=== PATIENT | female | born 1945 | race Caucasian/White ===

== ENCOUNTER 2020-01-24 08:23 | Outpatient (CLI) | payer MEDICARE, BC, SELFPAY ==
--- NOTE | 2020-01-24 08:28 | MM_ITS ---
WS: [id number] Bilateral screening digital mammogram, 01/24/2020 Clinical Data: SCREENING Comparison: 12/26/2018, 12/19/2017, 12/08/2016, 12/08/2015, 12/02/2014, 11/29/2013, 11/03/2012, 10/05/2011, 1 11/23/2009, 09/11/2009, 09/10/2008, 08/31/2007. Findings: The breast parenchymal pattern shows fat replacement. No spiculated masses or clustered calcification s are seen. There are no secondary signs of carcinoma. MM/[place] [id number] Impression: 1. Negative bilateral mammogram unchanged. 2. Recommend annual screening mammograms. BIRADS: 1-Negative FOLLOW UP: 1 Year Follow-up The CAD fish checker was used.
== END 2020-01-24 08:24 | disposition home or self-care (01) ==
LOC: RADSHAW 08:23
PROVIDERS: Family Provider Internal Medicine; PCP Internal Medicine; Visit Provider Internal Medicine
DX: Z12.31 Encounter for screening mammogram for malignant neoplasm of breast (principal)
CPT/HCPCS: 77067

== ENCOUNTER → 2020-05-07 08:38 | Outpatient (BNVA) | payer MEDICARE, BC, SELFPAY | PROVIDERS: Family Provider Internal Medicine; PCP Internal Medicine; Visit Provider Specialist | DX: M25.561 Pain in right knee (principal); M25.562 Pain in left knee | CPT/HCPCS: 73560; 73565 ==

== ENCOUNTER 2020-05-07 12:05 | Outpatient (CLI) | payer MEDICARE, BC, SELFPAY | END 2020-05-07 12:06 | disposition home or self-care (01) | LOC: SPT 12:05 | PROVIDERS: Family Provider Internal Medicine; PCP Internal Medicine; Visit Provider Specialist | DX: Z46.89 Encounter for fitting and adjustment of other specified devices (principal); M17.0 Bilateral primary osteoarthritis of knee; M25.561 Pain in right knee; M25.562 Pain in left knee | CPT/HCPCS: 73560; 73565; 97760; L1812 ==

== ENCOUNTER 2020-10-09 06:00 | Outpatient (RCR) | payer MEDICARE, BC, SELFPAY | END 2020-11-06 23:59 | disposition home or self-care (01) | LOC: MPT 06:00 | PROVIDERS: PCP Internal Medicine; Referring Provider Internal Medicine; Visit Provider Internal Medicine | DX: M25.512 Pain in left shoulder (principal) | CPT/HCPCS: 97110; 97140; 97161 ==

== ENCOUNTER 2021-04-10 10:28 | Outpatient (CLI) | payer MEDICARE, BC, SELFPAY ==
--- NOTE | 2021-04-10 10:33 | MM_ITS ---
WS: [id number] BILATERAL DIGITAL SCREENING MAMMOGRAPHY WITH CAD CLINICAL INFORMATION: SCREENING HISTORY: Screening mammogram. No current complaints. COMPARISON: January 24, 2020 TECHNIQUE: Bilateral CC and MLO views. FINDINGS: Scattered fibroglandular densities bilaterally. Punctate and lucent centered calcifications. Vascular calcifications. No suspicious focal mass, asymmetry, calcifications, or architectural distortion. No evidence of malignancy. MM/[place] [id number] IMPRESSION: BI-RADS: 2-Benign FOLLOW UP: 1 Year Follow-up Recommend return to annual screening mammography.
== END 2021-04-10 10:29 | disposition home or self-care (01) ==
LOC: RADSHAW 10:33
PROVIDERS: PCP Internal Medicine; Visit Provider Internal Medicine
DX: Z12.31 Encounter for screening mammogram for malignant neoplasm of breast (principal)
CPT/HCPCS: 77067

== ENCOUNTER 2021-05-18 15:56 | Outpatient (CLI) | payer MEDICARE, BC, SELFPAY | END 2021-05-18 15:57 | disposition home or self-care (01) | LOC: SPT 15:57 | PROVIDERS: PCP Internal Medicine; Visit Provider Specialist | DX: Z46.89 Encounter for fitting and adjustment of other specified devices (principal); M25.512 Pain in left shoulder | CPT/HCPCS: 73560; 73565; 97760; L1812 ==

== ENCOUNTER 2022-05-18 10:28 | Outpatient (CLI) | payer MEDICARE, BC, SELFPAY ==
--- NOTE | 2022-05-18 10:40 | MM_ITS ---
WS: [id number] BILATERAL SCREENING DIGITAL BREAST TOMOSYNTHESIS MAMMOGRAM WITH CAD HISTORY: SCREENING COMPARISON: 04/10/2021 and 01/24/2020 Bilateral CC and MLO views with tomosynthesis and synthetic mammography submitted. Computer aided det ection analyzed. Breast composition: There are scattered areas of fibroglandular density. No suspicious masses, microc alcifications or architectural distortion. Benign calcifications in each breast. MM/[place] [id number] IMPRESSION: BI-RADS: 2-Benign FOLLOW UP: 1 Year Follow-up
== END 2022-05-18 10:29 | disposition home or self-care (01) ==
LOC: RAD 10:30
PROVIDERS: PCP Internal Medicine; Visit Provider Internal Medicine
DX: Z12.31 Encounter for screening mammogram for malignant neoplasm of breast (principal)
CPT/HCPCS: 77063; 77067

== ENCOUNTER → 2022-05-27 10:38 | Outpatient (BNVA) | payer MEDICARE, BC, SELFPAY | PROVIDERS: PCP Internal Medicine; Visit Provider Specialist | DX: M17.0 Bilateral primary osteoarthritis of knee (principal) | CPT/HCPCS: 20610 ==

== ENCOUNTER 2022-05-27 14:26 | Outpatient (CLI) | payer MEDICARE, BC, SELFPAY | END 2022-05-27 14:27 | disposition home or self-care (01) | LOC: SPT 14:26 | PROVIDERS: PCP Internal Medicine; Visit Provider Specialist | DX: Z46.89 Encounter for fitting and adjustment of other specified devices (principal); M17.0 Bilateral primary osteoarthritis of knee | CPT/HCPCS: 97760; L1812 ==

== ENCOUNTER → 2022-12-02 09:50 | Outpatient (BNVA) | payer MEDICARE, BC, SELFPAY | PROVIDERS: PCP Internal Medicine; Visit Provider Specialist | DX: M17.0 Bilateral primary osteoarthritis of knee (principal); Z71.89 Other specified counseling | CPT/HCPCS: 20610; J7326 ==

== ENCOUNTER 2023-05-24 09:50 | Outpatient (CLI) | payer MEDICARE, BC, SELFPAY ==
--- NOTE | 2023-05-24 09:57 | MM_ITS ---
WS: [id number] VIEWS: MLO and CC views both breasts. 3D digital tomosynthesis is also included in this exam. Comparison made with prior exam of 12/08/2016, 12/19/2017, 12/26/2018, 01/24/2020, 04/10/2021, 05/18/2022.. FINDINGS: There is a new small ill-defined parenchymal density in the central posterior aspect of the right jodi ast almost directly behind the nipple. No architectural distortion or suspicious calcification noted. No new finding in the left breast. Regional ultrasound as well as compression spot images of the rig ht breast would be indicated for further workup. The breasts are almost entirely fatty. MM/[place] [id number] Impression: BI-RADS: 0-Incomplete: Need additional imaging evaluation FOLLOW-UP: See Report This mammogram was also analyzed by the Computer Aided Detection System R2 Imag e Lighting Fixtures Decorator.
== END 2023-05-24 09:51 | disposition home or self-care (01) ==
PROVIDERS: PCP Internal Medicine; Visit Provider Internal Medicine
DX: Z12.31 Encounter for screening mammogram for malignant neoplasm of breast (principal)
CPT/HCPCS: 77063; 77067

== ENCOUNTER 2023-06-02 15:08 | Outpatient (CLI) | payer MEDICARE, BC, SELFPAY | END 2023-06-02 15:09 | disposition home or self-care (01) | LOC: SPT 15:09 | PROVIDERS: PCP Internal Medicine; Visit Provider Specialist | DX: M17.0 Bilateral primary osteoarthritis of knee (principal); Z71.89 Other specified counseling | CPT/HCPCS: 20610; J7326; L1812 ==

== ENCOUNTER 2023-06-21 12:29 | Outpatient (CLI) | payer MEDICARE, BC, SELFPAY ==
--- NOTE | 2023-06-21 13:05 | MM_ITS ---
WS: [id number] ADDITIONAL VIEWS RIGHT MAMMOGRAM WITH DIGITAL BREAST TOMOSYNTHESIS. RIGHT BREAST ULTRASOUND HISTORY: ABNORMAL MAMMO COMPARISON: 05/24/2023, 05/18/2022 and 04/10/2021 RIGHT MAMMOGRAM: Spot compression views and true ML with digital breast tomosynthesis and SM. Asymmetry persists in the posterior right breast central to the nipple line and probably just inferio r to the nipple line. This is a vague asymmetry measuring approximately 13 x 8 mm. RIGHT BREAST ULTRASOUND 2-D and color Doppler imaging submitted. Asymmetry in the posterior right breast is identified by ultrasound at the 6:00 axis. There is a hypo echoic area with a few calcifications present measuring 8 x 10 x 6 mm. As this asymmetry has not been present on prior mammograms attempted biopsy should be performed. IMPRESSION: MM/[place] [id number] BI-RADS: 4-Suspicious Finding-Biopsy Should Be Considered FOLLOW UP: Biopsy Recommended Notified Sixto Jerome DO at 06/21/2023 1:54 PM.
== END 2023-06-21 12:30 | disposition home or self-care (01) ==
PROVIDERS: PCP Internal Medicine; Visit Provider Internal Medicine
DX: R92.8 Other abnormal and inconclusive findings on diagnostic imaging of breast (principal); N64.89 Other specified disorders of breast
CPT/HCPCS: 76642; 77061; G0279

== ENCOUNTER 2023-07-13 11:34 | Outpatient (CLI) | payer MEDICARE, BC, SELFPAY ==
--- NOTE | 2023-07-13 11:40 | US_ITS ---
WS: [id number] ULTRASOUND-GUIDED RIGHT BREAST BIOPSY HISTORY: ABNORMAL MAMMO COMPARISON: 06/21/2023 Procedure, risks and complications are explained to the patient. Medications are reviewed. Consent is obtained. The mass in the RIGHT breast is localized with ultrasound. Mass localizes to 6:00. Skin is cleansed w ith ChloraPrep and anesthetized with 1% buffered lidocaine. Small dermatome is made. Under sterile co nditions mass is biopsied with a 14-gauge Achieve needle. Multiple core biopsies are performed. Mater ial placed in formalin and sent to pathology for review. No complications encountered. Breast tissue marker ([email or web address] ultrasound enhanced ribbon): Single. Patient left the radiology suite with no complications. Patient is instructed to return to [facility] [place] [facility] or [facility] with any concerns. IMPRESSION: 1. Uncomplicated core needle biopsy RIGHT breast mass at 6:00. 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 Focal mucinous features. Greatest diameter of the tumor is 4 mm. Breast cancer prognostic profile is pending. RECOMMENDATION: Follow-up with oncology and breast surgeon.
[2023-08-09 08:09] LABS: Breast Profile ER,PR,HER2,Ki-6 See Report
== END 2023-07-13 11:35 | disposition home or self-care (01) ==
PROVIDERS: PCP Internal Medicine; Visit Provider Internal Medicine
DX: C50.111 Malignant neoplasm of central portion of right female breast (principal); R92.8 Other abnormal and inconclusive findings on diagnostic imaging of breast
CPT/HCPCS: 19083; 88305; 88361; 88374

== ENCOUNTER → 2023-08-02 11:31 | Outpatient (BNVA) | payer MEDICARE, BC, SELFPAY | PROVIDERS: PCP Internal Medicine; Referring Provider Internal Medicine; Visit Provider Surgery | DX: C50.919 Malignant neoplasm of unspecified site of unspecified female breast (principal) | CPT/HCPCS: 99203 ==

== ENCOUNTER → 2023-08-29 11:04 | Outpatient (BNVA) | payer MEDICARE, BC, SELFPAY | PROVIDERS: PCP Internal Medicine; Visit Provider Podiatrist Foot & Ankle Surgery | DX: B35.1 Tinea unguium (principal); G62.9 Polyneuropathy, unspecified; E11.42 Type 2 diabetes mellitus with diabetic polyneuropathy | CPT/HCPCS: 11721; 99203 ==

== ENCOUNTER 2023-09-01 10:36 | Day surgery (SDC) | payer MEDICARE, BC, SELFPAY ==
[2023-09-01] VITALS (12 sets, daily range): BP systolic 101–218; BP diastolic 62–99; PULSE 58–76; RESP 13–20; TEMP 36.1–36.6; O2SAT 91–98; BMI 40.3
--- NOTE | 2023-09-01 | US_ITS ---
WS: [id number] ULTRASOUND-GUIDED RIGHT BREAST NEEDLE LOCALIZATION CLINICAL INFORMATION: R Breast needle localization COMPARISON: 07/13/2023 FINDINGS: The procedure including risks, benefits, and complications were discussed with the patient who agreed to proceed. Using sterile technique patient was prepped and draped in the usual sterile fashion. Aft er 1% lidocaine utilizing real-time ultrasound guidance a 5 cm Kopan's needle was advanced into the R IGHT breast lesion at the 6 o'clock position at the areola. Wire was deployed in good position. No im mediate complications. Surgical specimen demonstrates gross total resection with intact localization wire. Pathology demonstrates: Invasive ductal carcinoma moderately differentiated. See pathology report for additional detail. IMPRESSION: 1. Uncomplicated ultrasound-guided wire localization. 2. Gross total resection with intact localization wire. 3. Pathology demonstrates invasive ductal carcinoma moderately differentiated. 4. Breast cancer prognostic profile is pending. See pathology report for additional detail. 5. Recommend follow-up with breast surgery and oncology as indicated US/US surgical specimen BI-RADS: 6-Known Biopsy-Proven Malignancy FOLLOW UP: See Report
--- NOTE | 2023-09-01 10:43 | US_ITS ---
WS: [email or web address] ULTRASOUND-GUIDED RIGHT BREAST NEEDLE LOCALIZATION CLINICAL INFORMATION: R Breast needle localization COMPARISON: 07/13/2023 FINDINGS: The procedure including risks, benefits, and complications were discussed with the patient who agreed to proceed. Using sterile technique patient was prepped and draped in the usual sterile fashion. Aft er 1% lidocaine utilizing real-time ultrasound guidance a 5 cm Kopan's needle was advanced into the R IGHT breast lesion at the 6 o'clock position at the areola. Wire was deployed in good position. No im mediate complications. Surgical specimen demonstrates gross total resection with intact localization wire. Pathology demonstrates: Invasive ductal carcinoma moderately differentiated. See pathology report for additional detail. IMPRESSION: 1. Uncomplicated ultrasound-guided wire localization. 2. Gross total resection with intact localization wire. 3. Pathology demonstrates invasive ductal carcinoma moderately differentiated. 4. Breast cancer prognostic profile is pending. See pathology report for additional detail. 5. Recommend follow-up with breast surgery and oncology as indicated US/[place] [id number] BI-RADS: 6-Known Biopsy-Proven Malignancy FOLLOW UP: See Report
--- NOTE | 2023-09-01 11:26 | SUR.PREOP ---
1124 PT TO RADIOLOGY VIA STRETCHER FOR SENTINEL NODE AND NEEDLE LOCALIZATION, AND BROTHER INFORMED OF THIS AND VERBALIZED UNDERSTANDING
--- NOTE | 2023-09-01 12:01 | ANES.PREANE2 ---
Pre-Anesthetic Assessment Height/Weight: Height 1.63 m Weight 106.594 kg Temp Pulse Resp BP Pulse Ox O2 Del Method 97.0 F L 76 17 196/91 95 Room Air 09/01/23 10:57 09/01/23 10:57 09/01/23 10:57 09/01/23 11:10 09/01/23 10:57 09/01/23 10:57 Operation Date: 09/01/23 13:45 [place] [id number] right breast lumpectomy and needle insertion of radiologic correlation C50.919(Right) - DO kandy Arnold Sentinal Lymph Node Biopsy(Right) - Rey Cuadra DO Familial anesthetic complications: none Was Beta Placido taken within 24 hours: Yes Was Clonidine taken within 24 hours: N/A Last intake: Intake Last Liquid Date 09/01/23 Last Liquid Time 08:30 Last Solid Date 08/31/23 Last Solid Time 16:00 Social No alcohol and No tobacco (h/o smoking) Exam alert, oriented x 3 and regular rate & rhythm Airway Submandibular: within normal limits Cervical ROM: within normal limits Mallampati: Class II Dentition: false Pulmonary Chronic Obstructive Pulmonary Disease CV/HEM Hypertension Metabolic Diabetes Mellitus and Morbid Obesity [facility] [place] Osteoarthritis/DJD Anesthetic Plan ASA status: 3 Anesthesia: General Medications/Allergies Home Medications Medication Instructions Recorded Confirmed Last Taken Type acetaminophen 325 mg capsule 650 mg PO BID 05/07/20 09/01/23 09/01/23 08:30 History (Tylenol) albuterol sulfate 90 mcg/actuation 1 inh inhalation Q4H PRN Shortness 05/07/20 08/31/23 Unknown History breath activated powder Of Breath inhaler,sensor allopurinol 100 mg tablet 100 mg PO DAILY 05/07/20 08/31/23 08/31/23 History amlodipine 10 mg tablet 10 mg PO DAILY 05/07/20 08/31/23 08/31/23 History losartan 100 mg tablet 100 mg PO DAILY 05/07/20 08/31/23 08/31/23 History magnesium oxide 400 mg PO EVERY OTHER DAY 05/07/20 08/31/23 08/29/23 History multivitamin (Daily Multi-Vitamin 1 tab PO DAILY 05/07/20 08/31/23 08/31/23 History tablet) omeprazole 20 mg tablet,delayed 20 mg PO DAILY 05/07/20 08/31/23 08/31/23 History release Hinged knee brace #2 ea 05/18/21 08/31/23 Unknown Rx HINGED KNEE BRACE #2 ea 05/27/22 08/31/23 Unknown Rx MALDIVIAN CRUTCHES #1 ea 06/02/23 08/31/23 Unknown Rx Hinged knee brace-bilateral #1 ea 06/02/23 08/31/23 Unknown Rx fluticasone 250 mcg-salmeterol 50 1 inh inhalation BID 08/02/23 09/01/23 09/01/23 08:30 History mcg/dose blistr powdr for inhalation hydrocodone 5 mg-acetaminophen 325 1 tab PO BID PRN Pain 08/02/23 08/31/23 08/26/23 History mg tablet metoprolol tartrate 100 mg tablet 100 mg PO BID 08/02/23 09/01/23 09/01/23 08:30 History methyl salicylate-menthol topical 1 applic topical DAILY 08/31/23 08/31/23 08/31/23 History cream tolnaftate 1 % topical cream 1 applic topical DIRECTED 08/31/23 08/31/23 08/27/23 History Allergies Allergy/AdvReac Type Severity Reaction Status Date / Time Penicillins Allergy rash Verified 09/01/23 10:54 Zmcgxpk-[id number]-WyJ Reductase Allergy musckle Verified 09/01/23 10:54 Inhibitor breakdown [Sdcmcef-Xtq-Imb Reductase Inhibitor] PFS Anesthesia Medical History Bronchitis, chronic Diabetes Dysplasia of bone Gout Hypertension Microscopic polyangiitis Osteoarthritis of knees, bilateral Rhabdomyolysis Schamberg's capillaritis Surgical History H/O: hysterectomy History of appendectomy Family History Mother Cancer breast cancer Father Lymphoma Social History Smoking and tobacco/nicotine status: former use of tobacco/nicotine Alcohol intake: former Substance/Drug Use: never Data Anesthesia 09/01/23 11:15 BMP 09/01/23 11:15 Sodium Cancelled Potassium Cancelled Chloride Cancelled Carbon Dioxide Cancelled BUN Cancelled Creatinine Cancelled Glucose Cancelled Calcium Cancelled Cardiac Studies: No Data to Display
--- NOTE | 2023-09-01 12:08 | PC.NURSE ---
Patient was injected with 1.06 mCi Tc99m Tilmanocept Lymphoseek in the 11:00 position of the RIGHT breast at 12:01pm by HARIKA Grande. No Complications. Please wait 15 minutes post injection for surgery.
--- NOTE | 2023-09-01 12:15 | W.PM.OPSUD ---
Surgery/Procedure H&P Update DATE OF PROCEDURE: September 01, 2023 DATE H&P PERFORMED: 08/02/23 H&P UPDATE INFORMATION: I have reviewed H&P completed within last 30 days, I have examined patient prior to procedure and No changes to prior documentation PLANNED PROCEDURE: Operation Date: 09/01/23 13:45 Pro[place] Procedures [place] [id number] right breast lumpectomy and needle insertion of radiologic correlation C50.919(Right) - DO kandy Arnold Sentinal Lymph Node Biopsy(Right) - Rey Cuadra DO
--- NOTE | 2023-09-01 12:23 | SUR.PREOP ---
1215 back from radiology via stretcher
[2023-09-01] MEDS: sodium chloride 0.9% 1,000 ML 30 ML IV (12:24)
[2023-09-01] MEDS: vancomycin 1,500 MG/300 ML PIGGYBACK 200 MG IV (12:35)
[2023-09-01 12:54] LABS: Anion Gap 17.6 (5-19); Blood Urea Nitrogen 25 mg/dL (8-23); Calcium 9.7 mg/dL (8.5-10.5); Carbon Dioxide 23 mmol/L (22-29); Chloride 103 mmol/L (98-107); Glucose 148 mg/dL (65-115); Osmolality Calculated 295 mOsm/kg (285-295); Potassium 4.6 mmol/L (3.5-5.1); Sodium 139 mmol/L (136-145)
[2023-09-01] MEDS: lidocaine-epi 2% 20 mL INJ INJECTION (13:58)
[2023-09-01] MEDS: isosulfan blue 10 mg/mL SDV 5mL SUBCUT (13:59)
--- NOTE | 2023-09-01 14:42 | P.OP_ITS ---
Operative Report Date of procedure: September 01, 2023 Pre-op diagnosis: Right breast cancer Post-op diagnosis: same Procedure done: Right breast lumpectomy with needle insertion and radiologic correlation and sentinel lymph node biopsy Implants: Winter and Surgicel Specimens removed/disposition: Right axillary sentinel lymph nodes Surgeon: Rey Cuadra DO Anesthesia: General Estimated blood loss (mL): 50 Complications: None apparent Brief History: This is a very pleasant 77-year-old female presented my office with biopsy- proven right breast cancer. Right breast lumpectomy with needle insertion and radiologic correlation and sentinel lymph node biopsy was indicated. The risk and benefits were explained and documented. Procedure: After radiotracer was injected and wire localization was performed by radiology, the patient was brought back into the operating room. She was placed on the OR table in the supine position. The right breast and axilla were inspected prepped and draped in usual sterile fashion. Lymphazurin blue was injected underneath the nipple and massaged for 5 minutes. A timeout was performed. All present were in agreement. A 5 cm incision was made in the left axilla. Dissection was carried down with electrocautery. The Rudyard counter was used to locate a sentinel lymph node. The nipple measured 255 on the Rudyard counter and large sentinel lymph nodes were identified measuring 67 and 47 each. Neither was blue. Electrocautery was used to dissect out the lymph nodes. Both specimens were passed off to go to pathology along with the surrounding fat. Electrocautery and a piece of Surgicel were used to control bleeding. Hemostasis was noted. Next, after localization a 6 cm circumareolar incision was made over the mass, in the 6 o'clock position. Electrocautery was used to carve out a lumpectomy specimen. The entire wire was included. Dissection was carried down to the pectoralis major muscle. Specimen was taken out en bloc. Wire marked lateral. Short stitch marked superior. Double stitch marked anterior. Hemostasis was achieved with electrocautery and Winter. Specimen was sent to radiology who said the clip and wire were surrounded by adequate tissue margins. The dermis was approximated with 3-0 Vicryl. The skin was closed with 4-0 Vicryl in a subcuticular and running fashion. Dermabond was applied. Patient tolerated the procedure well.
[2023-09-01] MEDS: fentaNYL 50 mcg/mL INJ 2mL IVP (15:22)
--- NOTE | 2023-09-01 15:28 | ANE.PACU2 ---
Inpatient post-anesthesia follow up: Airway intact: Yes Vital signs: Temperature 97.0 F Pulse Rate 76 Respiratory Rate 17 Blood Pressure 196/91 Pulse Oximetry 95 Oxygen Delivery Me thod Room Air Oxygen Flow Rate 6 Fraction of Inspir ed Oxygen Hydration adequate: Yes Nausea and vomiting: No Pain level: 2 Mental status: Baseline
[2023-09-01] MEDS: ondansetron 2 mg/ML SDV 2 mL 4 MG IVP (15:52)
[2023-09-01] MEDS: HYDROmorphone 1 mg/mL INJ 1 mL 0.5 MG IVP (15:59)
[2023-09-01] MEDS: HYDROcodone-acetaminophen 10-325 mg Tablet 1 TAB PO (16:23)
[2023-09-01] MEDS: metoclopramide 5 mg/mL SDV 2 mL 10 MG IVP (17:07)
== END 2023-09-01 17:45 | disposition home or self-care (01) ==
PROVIDERS: PCP Internal Medicine; Visit Provider Surgery
PROC: (CPT 19120; principal; 2023-09-01 13:45)
PROC: (CPT 19301; 2023-09-01 13:45)
DX: C50.811 Malignant neoplasm of overlapping sites of right female breast (principal); J44.9 Chronic obstructive pulmonary disease, unspecified; I10 Essential (primary) hypertension; E11.9 Type 2 diabetes mellitus without complications; E66.01 Morbid (severe) obesity due to excess calories; Z68.41 Body mass index [BMI] 40.0-44.9, adult; Z87.891 Personal history of nicotine dependence; Z80.3 Family history of malignant neoplasm of breast
CPT/HCPCS: 19301; 38500; 19285; 36415; 38792; 80048; 88307; A9520; C1889; J1170; J2371; J2405; J2704; J2765; J3010; J3370; J7030; Q9968

== ENCOUNTER → 2023-09-13 09:13 | Outpatient (BNVA) | payer MEDICARE, BC, SELFPAY | PROVIDERS: PCP Internal Medicine; Visit Provider Surgery | DX: C50.919 Malignant neoplasm of unspecified site of unspecified female breast (principal); Z98.890 Other specified postprocedural states | CPT/HCPCS: 99024 ==

== ENCOUNTER 2023-10-24 13:28 | Oncology outpatient (recurring) (ONCR) | payer MEDICARE, BC, SELFPAY ==
[2023-10-20 09:25] LABS: Basophils % 0.6 %; Hematocrit 38.7 % (36-47); Lymphocytes # 1.8 10^3/uL (0.8-4.8); Lymphocytes % 28.6 %; Mean Corpuscular HGB Conc 32.8 g/dL (30-55); Mean Corpuscular Hemoglobin 32.7 pg (27-33); Mean Corpuscular Volume 99.7 fl (85-98); Mean Platelet Volume 9.6 fL (7.4-10.4); Monocytes # 0.4 10^3/uL (0.2-0.9); Monocytes % 6.8 %; Neutrophils % 63.7 %; Nucleated Red Blood Cells % 0 %; Platelet Count 223 10^3/cmm (157-399); Red Blood Count 3.88 10^6/uL (3.85-5.65); Red Cell Distribution Width 13.1 % (12.1-15.1); White Blood Count 6.29 10^3/uL (3.29-11.43)
[2023-10-20 10:04] LABS: 25 Hydroxy Vitamin D 34 ng/mL (30-100); Alanine Aminotransferase 23 U/L (0-33); Albumin Level 3.8 g/dL (3.5-5.2); Alkaline Phosphatase 62 U/L (35-105); Anion Gap 13.8 (5-19); Aspartate Amino Transferase 30 U/L (0-32); Blood Urea Nitrogen 24 mg/dL (8-23); CA 15-3 24.8 U/mL (0-25); Calcium 9.7 mg/dL (8.5-10.5); Carbon Dioxide 26 mmol/L (22-29); Chloride 103 mmol/L (98-107); Globulin 3.4 g/dL (1.3-4.6); Glucose 171 mg/dL (65-115); Osmolality Calculated 294 mOsm/kg (285-295); Potassium 4.8 mmol/L (3.5-5.1); Sodium 138 mmol/L (136-145); Total Bilirubin 0.5 mg/dL (0.15-1.2); Total Protein 7.2 g/dL (6.6-8.7)
--- NOTE | 2023-10-25 09:21 | N.ONRAD NP_ITS ---
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 Oncotype Dx score requested and is still pending. Radiotherapy to date: Summary > No prior radiation therapy. Chief Complaint / History of Present Illness: 78 yo woman who underwent routine MMG which revealed new lesion in central right breast. No symptoms. Bx 07/13/2023 revealed IDC ER 100%, NC 20% positive. H2N negative, Ki 67 10%. Lumpectomy 09/01/2023 mod diff IDC 1.2 cm. DCIS in 50% of specimen. Margins clear 0/4 LNs involved. Oncotype DX score requested by med onc result pending. Doing well post op. Lives independently with . Limited ambulation due to knee DJD. Walks with two canes. Current Medications: see med oncology eval Allergies: PCN, statin meds. Medical History: No history of collagen vascular disease. No previous radiation therapy. 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 Father with lymphoma. Social History: second time. One daughter in [place], [place]. 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 3 ppd smoker. age 20 to 48 Current Complaints / Review of Systems: . Vital Signs: Performed on 10/24/2023 1:52 PM BMI - 40.029 kg/m2 (high), Height - 64 in, Weight - 233.2 lbs, Temperature - 96.8 f, Pulse - 76 /min, Respiration - 16 /min, O2 Sat - 99 %, Pain - 0, Fatigue - 6 and BP - 161/ 91 mm(hg)(high). Physical Exam: Elderly in NAD. Arms FROM with no arm edema. Right breast kimber-areolar incision well healed with minimal induration. No breast masses, tenderness or skin changes. Performance Status: 0 ??? 1 limited by knee arthritis only Pathology: see HPI Lab: none Imaging: See HPI Impression:St I(T1 N0 M0) mod diff ER NC positive IDC of central right breast. Oncotype DX score pending . Anticipating a favorable score, recommend 42 Gy to breast in 16 fractions followed by 10 Gy 4 fraction boost followed by endocrine treatment. In the unlikely event of an adverse score then recommend med on to address chemo followed by radiation. Discussed in detail with patient and spouse. 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 Plan: Signed by: 10/25/2023 9:19:51 AM <<Signature on File>> Time spent with patient: CPT Code: CPT Code:
== END 2023-11-06 23:59 | disposition home or self-care (01) ==
PROVIDERS: PCP Internal Medicine; Visit Provider Internal Medicine
DX: C50.111 Malignant neoplasm of central portion of right female breast (principal); Z17.0 Estrogen receptor positive status [ER+]; Z80.3 Family history of malignant neoplasm of breast; Z51.0 Encounter for antineoplastic radiation therapy; M17.0 Bilateral primary osteoarthritis of knee
CPT/HCPCS: 36415; 77290; 77295; 77300; 77334; 80053; 82306; 85025; 86300; 99205

== ENCOUNTER 2023-11-14 13:48 | Outpatient (CLI) | payer MEDICARE, BC, SELFPAY ==
--- NOTE | 2023-11-14 15:00 | XR_ITS ---
WS: [id number] SCREENING DEXA SCAN [employer] CLINICAL INFORMATION: asymptomatic menopausal state COMPARISON: 2012 FINDINGS: The L1-L4 bone mineral density measures 1.544 g/cm2. This corresponds to a T score score of 3.0 and Z score of 3.7. Left femoral neck bone mineral density measures 0.896 g/cm2. This corresponds to a T score of -0.9 an d Z score of 0.2. Right femoral neck bone mineral density measures 0.898 g/cm2. This corresponds to a T score -0.9of an d Z score of 0.2. Mean femoral neck bone mineral density measures 0.897 g/cm2. This corresponds to a T score of -0.9 an d Z score of 0.2. IMPRESSION: Normal bone mineralization lumbar spine. Normal bone mineralization femoral necks approaching osteope helene. Patient's FRAX calculated 10 year probability for major osteoporotic fracture is 17.9% and osteoporot ic hip fracture is 5.5%. Bone mineral density lumbar spine increased 0.7%. Bone mineral density femoral necks decreased -22.1%
== END 2023-11-14 13:49 | disposition home or self-care (01) ==
LOC: RAD 13:48
PROVIDERS: PCP Internal Medicine; Visit Provider Internal Medicine
DX: Z78.0 Asymptomatic menopausal state (principal); E11.42 Type 2 diabetes mellitus with diabetic polyneuropathy; B35.1 Tinea unguium; G62.9 Polyneuropathy, unspecified
CPT/HCPCS: 11721; 77080

== ENCOUNTER 2023-12-07 09:56 | Oncology outpatient (recurring) (ONCR) | payer MEDICARE, BC, SELFPAY ==
--- NOTE | 2023-11-22 15:02 | ONCRAD TMN_ITS ---
Radiation Oncology Weekly Treatment Management Patient: Ayana Zhang MR#: [id number] : 1945 Attending Physician: Dr. Briseyda Patterson Date of Service: 11/22/2023 Fractions: 1 of 20 total Referring Physician(s) : Sixto Saldaña M.D. Diagnosis: C50.911 - Malignant neoplasm of unspecified site of right female breast, Diagnosed 09/06/2023 (Active) Radiotherapy to date: Course: RT Breast 2022, Treatment Site: RtBreast init, Ref. ID: [id number], Energy: 15X, Dose/Fx (cGy): 266, #Fx: , Dose Correction (cGy): 0, Total Dose (cGy): 266, Start Date: 11/22/2023, Elapsed Days: 0 Reason for visit: The patient is being seen today as part of their regularly scheduled weekly on treatment visits to assess for acute toxicities from radiotherapy. Review of Systems: Patient had a few questions about the ventura that were prolonged today. Vital Signs: Performed on 11/22/2023 2:18 PM BMI - 39.068 kg/m2 (high), Height - 64 in, Weight - 227.6 lbs, Temperature - 97.5 f, Pulse - 74 /min, Respiration - 18 /min, O2 Sat - 98 %, Pain - 0, Fatigue - 3 and BP - 165/ 82 mm(hg)(high/). Physical Exam: No changes were noted on the skin Imaging: Radiation therapy imaging related to accurate target localization (i.e. KV, MV and CBCT) was reviewed. Appropriate changes, if any, were made to ensure treatment accuracy. Plan: Will continue with her treatments as planned. We talked about skin care and she will also be going to dermatology next week. She had questions about whether the kidney disease would be affected by the radiation I reassured her that it would not cause any issues. Signed by: Dr. Briseyda Patterson 11/22/2023 3:00:29 PM
--- NOTE | 2023-11-29 10:28 | ONCRAD TMN_ITS ---
Radiation Oncology Weekly Treatment Management Patient: Leatha Bowens MR#: [id number] : 1945> Attending Physician: Dr. Briseyda Patterson Date of Service: 11/29/2023 Fractions: 03/22 Referring Physician(s) : Sixto Saldaña M.D. Diagnosis: C50.911 - Malignant neoplasm of unspecified site of right female breast, Diagnosed 09/06/2023 (Active) Radiotherapy to date: Course: RT Breast 2022, Treatment Site: RtBreast init, Ref. ID: [id number], Energy: 15X, Dose/Fx (cGy): 266, #Fx: , Dose Correction (cGy): 0, Total Dose (cGy): 1,330, Start Date: 11/22/2023, Elapsed Days: 7 Reason for visit: The patient is being seen today as part of their regularly scheduled weekly on treatment visits to assess for acute toxicities from radiotherapy. Review of Systems: Patient has had some soreness in the axillary area which goes into the bicep. Vital Signs: Physical Exam: On examination there is no changes in her skin. She was able to stretch her arm clear overhead. Imaging: Radiation therapy imaging related to accurate target localization (i.e. KV, MV and CBCT) was reviewed. Appropriate changes, if any, were made to ensure treatment accuracy. Plan: Will continue with her treatments as planned. I asked her to continue to stretch her arm on a daily basis. Signed by: Dr. Briseyda Patterson 11/29/2023 10:27:03 AM
--- NOTE | 2023-12-06 11:02 | ONCRAD TMN_ITS ---
Radiation Oncology Weekly Treatment Management Patient: Ayana Zhang MR#: [id number] : 1945> Attending Physician: Feliciano Angel Date of Service: 12/06/2023 Referring Physician(s) : Sixto Saldaña M.D. Diagnosis: C50.911 - Malignant neoplasm of unspecified site of right female breast, Diagnosed 09/06/2023 (Active) Radiotherapy to date: Course: RT Breast 2022, Treatment Site: RtBreast init, Ref. ID: [id number], Energy: 15X, Dose/Fx (cGy): 266, #Fx: , Dose Correction (cGy): 0, Total Dose (cGy): 2,660, Start Date: 11/22/2023, Elapsed Days: 14 Reason for visit: The patient is being seen today as part of their regularly scheduled weekly on treatment visits to assess for acute toxicities from radiotherapy. Review of Systems: Patient is using moisturizers as instructed. She has no complaints of skin irritation, excessive fatigue, or pain. Patient is present today with her . She reports a history of autoimmune disease and receives injections in her knees every 6 months as she is unable to undergo knee surgery. Vital Signs: Performed on 12/06/2023 10:07 AM BMI - 39.068 kg/m2 (high), Height - 64 in, Weight - 227.6 lbs, Temperature - 96.9 f, Pulse - 65 /min, Respiration - 16 /min, O2 Sat - 97 %, Pain - 0, Fatigue - 2 and BP - 158/ 70 mm(hg)(high/). Physical Exam: Skin of the right breast is intact. There is no erythema in the right axilla or right inframammary fold. Patient ambulatory by crutches. Imaging: Radiation therapy imaging related to accurate target localization (i.e. KV, MV and CBCT) was reviewed. Appropriate changes, if any, were made to ensure treatment accuracy. Plan: Patient is tolerating her radiation therapy well with minimal treatment related side effects. Plan to continue prescribed treatment. Signed by: Feliciano Angel 12/06/2023 11:00:47 AM
== END 2023-12-07 23:59 | disposition home or self-care (01) ==
PROVIDERS: PCP Internal Medicine; Visit Provider Radiology Radiation Oncology
DX: Z51.0 Encounter for antineoplastic radiation therapy (principal); C50.911 Malignant neoplasm of unspecified site of right female breast
CPT/HCPCS: 77336; 77387; 77412; 99024

== ENCOUNTER 2023-12-28 10:28 | Oncology outpatient (recurring) (ONCR) | payer MEDICARE, BC, SELFPAY ==
--- NOTE | 2023-12-13 10:37 | ONCRAD TMN_ITS ---
Radiation Oncology Weekly Treatment Management Patient: Ayana Zhang MR#: [id number] : 1945 Attending Physician: Dr. Briseyda Patterson Date of Service: 12/13/2023 Fractions: 15 of 20 to the right breast Referring Physician(s) : Sixto Saldaña M.D. Diagnosis: C50.911 - Malignant neoplasm of unspecified site of right female breast, Diagnosed 09/06/2023 (Active) Radiotherapy to date: Course: RT Breast 2022, Treatment Site: RtBreast init, Ref. ID: [id number], Energy: 15X, Dose/Fx (cGy): 266, #Fx: 15 / 16, Dose Correction (cGy): 0, Total Dose (cGy): 3,990, Start Date: 11/22/2023, Elapsed Days: 21 Reason for visit: The patient is being seen today as part of their regularly scheduled weekly on treatment visits to assess for acute toxicities from radiotherapy. Review of Systems: Patient has noticed no real changes that have become bothersome. She is using her aloe vera gel without problems Vital Signs: Performed on 12/13/2023 10:33 AM BMI - 39.411 kg/m2 (high), Height - 64 in, Weight - 229.6 lbs, Temperature - 97.6 f, Pulse - 67 /min, Respiration - 16 /min, O2 Sat - 97 %, Pain - 0, Fatigue - 0 and BP - 157/ 77 mm(hg)(high/). Physical Exam: On examination her skin is just mildly erythematous. She has 2 small punctate areas in the upper inner quadrant that are rash-like Imaging: Radiation therapy imaging related to accurate target localization (i.e. KV, MV and CBCT) was reviewed. Appropriate changes, if any, were made to ensure treatment accuracy. Plan: She is doing well. She will continue to use her aloe vera. Will continue with her treatments as planned. Signed by: Dr. Briseyda Patterson 12/13/2023 10:36:25 AM
--- NOTE | 2023-12-20 08:53 | N.ONRD TS_ITS ---
Radiation Oncology Treatment Management/ Summary Patient: Ayana Zhang MR#: [id number] : 1945 Age: 78 Sex: Female Dictated by: Dr. Briseyda Patterson Date of Service: 12/20/2023 Referring Physician(s) : Sixto Saldaña M.D. Diagnosis: C50.911 - Malignant neoplasm of unspecified site of right female breast, Diagnosed 09/06/2023 (Active) Radiotherapy to Date: Course: RT Breast 2022, Treatment Site: Breast Boost, Ref. ID: [id number], Energy: 15X, Dose/Fx (cGy): 250, #Fx: 4 / 4, Dose Correction (cGy): 0, Total Dose Delivered (cGy): 1,000, Start Date: 12/15/2023, End Date: 12/20/2023, Elapsed Days: 5 Course: RT Breast 2022, Treatment Site: RtBreast init, Ref. ID: [id number], Energy: 15X, Dose/Fx (cGy): 266, #Fx: 16 / 16, Dose Correction (cGy): 0, Total Dose Delivered (cGy): 4,256, Start Date: 11/22/2023, End Date: 12/14/2023, Elapsed Days: 22 Vital Signs: Performed on 12/20/2023 8:21 AM: BMI - 39.205 kg/m2 (high), Height - 64 in, Weight - 228.4 lbs, Temperature - 97.1 f, Pulse - 18 /min (low), Respiration - 18 /min, O2 Sat - 98 %, Pain - 0, Fatigue - 0 and BP - 168/ 86 mm(hg)(high/). Clinical Summary: The patient tolerated RT well. She had a mild skin reaction with erythema. She did not developed any dry or moist desquamation. Plan: End of treatment today. Continue on the above medication until the skin reaction resolves. Follow up in one month. Signed by: Dr. Briseyda Patterson>12/20/2023 8:52:29 AM <<Signature on File>>
== END 2024-01-05 23:59 | disposition home or self-care (01) ==
PROVIDERS: PCP Internal Medicine; Visit Provider Radiology Radiation Oncology
DX: C50.911 Malignant neoplasm of unspecified site of right female breast (principal); Z17.0 Estrogen receptor positive status [ER+]; Z87.891 Personal history of nicotine dependence; M17.0 Bilateral primary osteoarthritis of knee; Z92.3 Personal history of irradiation; Z79.899 Other long term (current) drug therapy
CPT/HCPCS: 20610; 77014; 77336; 77387; 77412; 99024; 99214; J7326

== ENCOUNTER → 2023-12-28 11:00 | Outpatient (BNVA) | payer MEDICARE, BC, SELFPAY | PROVIDERS: PCP Internal Medicine; Visit Provider Internal Medicine | DX: Z53.9 Procedure and treatment not carried out, unspecified reason (principal) | CPT/HCPCS: 77336; 77387; 77412 ==

== ENCOUNTER → 2024-01-23 10:39 | Outpatient (BNVA) | payer MEDICARE, BC, SELFPAY | PROVIDERS: PCP Internal Medicine; Visit Provider Podiatrist Foot & Ankle Surgery | DX: B35.1 Tinea unguium (principal); G62.9 Polyneuropathy, unspecified; E11.42 Type 2 diabetes mellitus with diabetic polyneuropathy | CPT/HCPCS: 11721 ==

== ENCOUNTER 2024-02-01 11:30 | Oncology outpatient (recurring) (ONCR) | payer MEDICARE, BC, SELFPAY ==
--- NOTE | 2024-01-18 10:53 | ONCRAD EPV_ITS ---
Radiation Oncology Established Patient Visit Patient: Ayana Zhang [id number] : 1945 Age: 78 Sex: Female Dictated by: Feliciano Angel Date of Service: 01/18/2024 Referring Physician(s) : Sixto Saldaña M.D. Diagnosis: C50.911 - Malignant neoplasm of unspecified site of right female breast, Diagnosed 09/06/2023 (Active) Radiotherapy to Date: Course: RT Breast 2022, Treatment Site: Breast Boost, Ref. ID: [id number] Energy: 15X, Dose/Fx (cGy): 250, #Fx: 4 / 4, Dose Correction (cGy): 0, Total Dose Delivered (cGy): 1,000, Start Date: 12/15/2023, End Date: 12/20/2023, Elapsed Days: 5 RT Breast 2022, Treatment Site: RtBreast init, Ref. ID: [id number], Energy: 15X, Dose/Fx (cGy): 266, #Fx: , Dose Correction (cGy): 0, Total Dose Delivered (cGy): 4,256, Start Date: 11/22/2023, End Date: 12/14/2023, Elapsed Days: 22 Current History: Patient denies difficulty with skin irritation or edema. She notes a rare shocklike sensation of the right breast that lasts for a second or 2. She denies any difficulty sleeping. She continues with the use of aloe vera as needed. Current Medications: Allergies: Current Complaints / Review of Systems: . Vital Signs: Performed on 01/18/2024 9:55 AM BMI - 39.308 kg/m2 (high), Height - 64 in, Weight - 229 lbs, Temperature - 96.4 f, Pulse - 68 /min, Respiration - 16 /min, O2 Sat - 98 %, Pain - 0, Fatigue - 2 and BP - 162/ 75 mm(hg)(high/). Physical Exam: General: Alert and oriented x 3. No acute distress. HEENT: Normocephalic, atraumatic. Extraocular Movements Intact: Pupils Equal, Round, Reactive to Light and Accommodation: Sclerae anicteric. Oral cavity is clear without lesions, masses or ulcers. NECK: Supple without supraclavicular or jugular lymphadenopathy. LUNGS: Clear to auscultation bilaterally without rales, rhonchi or wheeze. HEART: Regular rate and rhythm, normal S1 and S2 without murmur, gallop or rub. BREASTS: Surgical incision in the inferior portion of the right breast is well-healed. There is a slight surgical defect. Skin of the right breast is intact without erythema or desquamation. No lymphedema is noted. No masses are palpable in either breast. MUSCULOSKELETAL: No tenderness or percussion pain over the axial skeleton, scapulae or pelvis. ABDOMEN: Soft, nontender, nondistended without masses or organomegaly. Bowell sounds are present. EXTREMITIES: No peripheral edema is identified. Limited motor and sensory examination are grossly intact and symmetric bilaterally. NEUROLOGIC: Cranial nerves II ???XII are grossly intact. Normal sensation, strength 5/5 in all extremities, normal gait, no ataxia. Performance Status: Lab: None pending. Pathology: Primary, c50.911 - malignant neoplasm of unspecified site of right female breast, Diagnosed 09/06/2023 (active) . Imaging: See HPI Impression: The patient has recovered well from the acute effects of her external beam radiation therapy and has no radiation related side effects. She has routine follow-up mammogram scheduled in several months and has an appointment for follow-up with medical oncology. She has been instructed to contact our office if she has any questions or concerns regarding her radiation therapy. Signed by: 01/18/2024 10:51:18 AM <<Signature on File>> Time spent with patient: 30 minutes CPT Code: CPT Code:
[2024-02-01 11:26] LABS: Basophils # 0.1 10^3/uL (0.0-0.1); Basophils % 0.9 %; Eosinophils # 0.1 10^3/uL (0.0-0.8); Eosinophils % 1.4 %; Hematocrit 39.4 % (36-47); Lymphocytes # 1.4 10^3/uL (0.8-4.8); Lymphocytes % 24.5 %; Mean Corpuscular HGB Conc 32.7 g/dL (30-55); Mean Corpuscular Hemoglobin 33.2 pg (27-33); Mean Corpuscular Volume 101.3 fl (85-98); Mean Platelet Volume 9.7 fL (7.4-10.4); Monocytes # 0.4 10^3/uL (0.2-0.9); Monocytes % 6.9 %; Neutrophils # 3.82 10^3/uL (1.8-7.7); Nucleated Red Blood Cells % 0 %; Platelet Count 230 10^3/cmm (157-399); Red Blood Count 3.89 10^6/uL (3.85-5.65); Red Cell Distribution Width 13.1 % (12.1-15.1); White Blood Count 5.79 10^3/uL (3.29-11.43)
[2024-02-01 11:42] LABS: Albumin Level 3.8 g/dL (3.5-5.2); Alkaline Phosphatase 66 U/L (35-105); Anion Gap 14.8 (5-19); Blood Urea Nitrogen 31 mg/dL (8-23); Calcium 9.5 mg/dL (8.5-10.5); Carbon Dioxide 23 mmol/L (22-29); Chloride 108 mmol/L (98-107); Globulin 3.9 g/dL (1.3-4.6); Glucose 199 mg/dL (65-115); Osmolality Calculated 304 mOsm/kg (285-295); Potassium 4.8 mmol/L (3.5-5.1); Sodium 141 mmol/L (136-145); Total Bilirubin 0.3 mg/dL (0.15-1.2); Total Protein 7.7 g/dL (6.6-8.7)
[2024-02-01 11:52] LABS: Alanine Aminotransferase 21 U/L (0-33); Aspartate Amino Transferase 5 U/L (0-32)
== END 2024-02-05 23:59 | disposition home or self-care (01) ==
PROVIDERS: Internal Medicine; Absent Provider Radiology Radiation Oncology; PCP Internal Medicine; Visit Provider Internal Medicine Medical Oncology
DX: Z51.0 Encounter for antineoplastic radiation therapy (principal); C50.911 Malignant neoplasm of unspecified site of right female breast; M17.0 Bilateral primary osteoarthritis of knee; Z71.89 Other specified counseling; Z53.9 Procedure and treatment not carried out, unspecified reason
CPT/HCPCS: 36415; 80053; 85025; 99024; 99214

== ENCOUNTER → 2024-03-28 12:00 | Outpatient (BNVA) | payer MEDICARE, BC, SELFPAY | PROVIDERS: PCP Internal Medicine; Visit Provider Podiatrist Foot & Ankle Surgery | DX: B35.1 Tinea unguium (principal); G62.9 Polyneuropathy, unspecified; E11.42 Type 2 diabetes mellitus with diabetic polyneuropathy | CPT/HCPCS: 11721 ==

== ENCOUNTER 2024-05-07 12:42 | Oncology outpatient (recurring) (ONCR) | payer MEDICARE, BC, SELFPAY ==
[2024-05-07 14:01] LABS: Basophils # 0.1 10^3/uL (0.0-0.1); Hematocrit 38.6 % (36-47); Lymphocytes # 1.8 10^3/uL (0.8-4.8); Lymphocytes % 26.5 %; Mean Corpuscular HGB Conc 32.9 g/dL (30-55); Mean Corpuscular Volume 100.3 fl (85-98); Mean Platelet Volume 10.2 fL (7.4-10.4); Monocytes # 0.5 10^3/uL (0.2-0.9); Monocytes % 7.1 %; Neutrophils # 4.52 10^3/uL (1.8-7.7); Nucleated Red Blood Cells % 0 %; Platelet Count 217 10^3/cmm (157-399); Red Blood Count 3.85 10^6/uL (3.85-5.65); Red Cell Distribution Width 12.9 % (12.1-15.1); White Blood Count 6.95 10^3/uL (3.29-11.43)
[2024-05-07 14:17] LABS: Estmated Average Glucose 160; Hemoglobin A1C 7.2 % (4.0-6.0)
[2024-05-07 14:18] LABS: Alanine Aminotransferase 22 U/L (0-33); Albumin Level 3.9 g/dL (3.5-5.2); Alkaline Phosphatase 62 U/L (35-105); Anion Gap 16.9 (5-19); Aspartate Amino Transferase 26 U/L (0-32); Blood Urea Nitrogen 37 mg/dL (8-23); Calcium 9.3 mg/dL (8.5-10.5); Carbon Dioxide 20 mmol/L (22-29); Chloride 107 mmol/L (98-107); Globulin 3.2 g/dL (1.3-4.6); Glucose 157 mg/dL (65-115); Osmolality Calculated 300 mOsm/kg (285-295); Potassium 4.9 mmol/L (3.5-5.1); Sodium 139 mmol/L (136-145); Total Bilirubin 0.3 mg/dL (0.15-1.2); Total Protein 7.1 g/dL (6.6-8.7)
--- NOTE | 2024-05-30 08:30 | MM_ITS ---
WS: [id number] DIAGNOSTIC BILATERAL DIGITAL BREAST TOMOSYNTHESIS MAMMOGRAPHY WITH CAD HISTORY: breast ca follow up COMPARISON: 06/21/2023, 05/24/2023 and 05/18/2022 TECHNIQUE: Bilateral craniocaudad, mediolateral oblique, and mediolateral views are submitted with to mosdonnie and SARABJIT. Computer aided detection utilized. Breast composition: There are scattered areas of fibroglandular density. Lumpectomy site in the poste rior central RIGHT breast is identified. There is an area of increased density from the lumpectomy si te. Mild increase in the trabecular thickening and skin thickening from radiation. Benign calcificati ons in each breast. Surgical sutures are noted also towards the axilla. MM/[place] [id number] IMPRESSION: BI-RADS: 2-Benign FOLLOW UP: 1 Year Follow-up
== END 2024-06-06 23:59 | disposition home or self-care (01) ==
LOC: RAD 05-30 07:56 → ONCMED 05-30 07:57
PROVIDERS: Nurse Practitioner Family; Absent Provider Radiology Radiation Oncology; PCP Internal Medicine; Visit Provider Internal Medicine
DX: C50.911 Malignant neoplasm of unspecified site of right female breast (principal)
CPT/HCPCS: 36415; 77062; 80053; 83036; 85025; 99213; G0279

== ENCOUNTER 2024-06-13 11:47 | Outpatient (CLI) | payer MEDICARE, BC, SELFPAY | END 2024-06-13 11:48 | disposition home or self-care (01) | LOC: SPT 11:50 | PROVIDERS: PCP Internal Medicine; Visit Provider Specialist | DX: Z46.89 Encounter for fitting and adjustment of other specified devices (principal); M17.0 Bilateral primary osteoarthritis of knee | CPT/HCPCS: 20610; 97760; J7326; L1812 ==

== ENCOUNTER → 2024-06-18 08:17 | Outpatient (BNVA) | payer MEDICARE, BC, SELFPAY | PROVIDERS: PCP Internal Medicine; Visit Provider Podiatrist Foot & Ankle Surgery | DX: B35.1 Tinea unguium (principal); G62.9 Polyneuropathy, unspecified; D22.9 Melanocytic nevi, unspecified; E11.42 Type 2 diabetes mellitus with diabetic polyneuropathy | CPT/HCPCS: 11721; 99213 ==

== ENCOUNTER → 2024-08-20 08:13 | Outpatient (BNVA) | payer MEDICARE, BC, SELFPAY | PROVIDERS: PCP Internal Medicine; Visit Provider Podiatrist Foot & Ankle Surgery | DX: B35.1 Tinea unguium (principal); G62.9 Polyneuropathy, unspecified; D22.9 Melanocytic nevi, unspecified; E11.42 Type 2 diabetes mellitus with diabetic polyneuropathy | CPT/HCPCS: 11721 ==

== ENCOUNTER → 2024-10-24 07:41 | Outpatient (BNVA) | payer MEDICARE, BC, SELFPAY | PROVIDERS: PCP Internal Medicine; Visit Provider Podiatrist Foot & Ankle Surgery | DX: B35.1 Tinea unguium (principal); G62.9 Polyneuropathy, unspecified; D22.9 Melanocytic nevi, unspecified; E11.42 Type 2 diabetes mellitus with diabetic polyneuropathy | CPT/HCPCS: 11721 ==

== ENCOUNTER 2024-11-13 10:58 | Oncology outpatient (recurring) (ONCR) | payer MEDICARE, BC, SELFPAY ==
[2024-11-13 11:23] LABS: Basophils # 0.1 10^3/uL (0.0-0.1); Basophils % 0.7 %; Hematocrit 37.4 % (36-47); Lymphocytes # 1.6 10^3/uL (0.8-4.8); Lymphocytes % 22.2 %; Mean Corpuscular HGB Conc 33.2 g/dL (30-55); Mean Corpuscular Hemoglobin 32.8 pg (27-33); Mean Corpuscular Volume 98.9 fl (85-98); Mean Platelet Volume 9.4 fL (7.4-10.4); Monocytes # 0.5 10^3/uL (0.2-0.9); Monocytes % 6.3 %; Neutrophils % 70.4 %; Nucleated Red Blood Cells % 0 %; Platelet Count 219 10^3/cmm (157-399); Red Blood Count 3.78 10^6/uL (3.85-5.65); White Blood Count 7.25 10^3/uL (3.29-11.43)
[2024-11-13 11:48] LABS: Alanine Aminotransferase 15 U/L (0-33); Albumin Level 3.8 g/dL (3.5-5.2); Alkaline Phosphatase 68 U/L (35-105); Anion Gap 17.9 (5-19); Aspartate Amino Transferase 23 U/L (0-32); Blood Urea Nitrogen 24 mg/dL (8-23); Calcium 9.8 mg/dL (8.5-10.5); Carbon Dioxide 23 mmol/L (22-29); Chloride 105 mmol/L (98-107); Globulin 3.1 g/dL (1.3-4.6); Glucose 166 mg/dL (65-115); Immunoglobulin IGA 332 mg/dL (70-400); Immunoglobulin IGG 879 mg/dL (700-1600); Immunoglobulin IGM 230 mg/dL (40-230); Osmolality Calculated 300 mOsm/kg (285-295); Potassium 4.9 mmol/L (3.5-5.1); Sodium 141 mmol/L (136-145); Total Bilirubin 0.4 mg/dL (0.15-1.2); Total Protein 6.9 g/dL (6.6-8.7)
[2024-11-14 09:25] LABS: PROTEIN, TOTAL 6.7 g/dL (6.1-8.1)
[2024-11-15 10:05] LABS: ALBUMIN 3.5 g/dL (3.8-4.8); ALPHA 1 GLOBULIN 0.3 g/dL (0.2-0.3); BETA 1 GLOBULIN 0.5 g/dL (0.4-0.6); BETA 2 GLOBULIN 0.5 g/dL (0.2-0.5); GAMMA GLOBULIN 0.9 g/dL (0.8-1.7)
[2024-11-15 11:35] LABS: KAPPA LIGHT CHAIN, FREE, SERUM 60.1 mg/L (3.3-19.4); KAPPA/LAMBDA LIGHT CHAINS FREE 1.18 (0.26-1.65)
[2024-11-17 17:49] LABS: Immunofixation Serum Normal pattern.
== END 2024-12-07 23:59 | disposition home or self-care (01) ==
PROVIDERS: Absent Provider Radiology Radiation Oncology; PCP Internal Medicine; Visit Provider Internal Medicine
DX: C50.911 Malignant neoplasm of unspecified site of right female breast (principal); E11.65 Type 2 diabetes mellitus with hyperglycemia; Z17.0 Estrogen receptor positive status [ER+]; Z92.3 Personal history of irradiation; Z79.811 Long term (current) use of aromatase inhibitors; Z98.890 Other specified postprocedural states
CPT/HCPCS: 36415; 80053; 82784; 83883; 84155; 84165; 85025; 86334; 99214

== ENCOUNTER 2024-12-12 08:44 | Outpatient (CLI) | payer MEDICARE, BC, SELFPAY ==
--- NOTE | 2024-12-12 08:57 | US_ITS ---
WS: [id number] Right breast ultrasound, 12/12/2024 Clinical Data: HX OF BREAST CANCER Comparison: Right breast ultrasound, 06/21/2023 Findings: At the 12 o'clock position corresponding to palpable nodules there is a simple cyst measuring 0.3 x 0.4 x 0.3 cm. At the 10 o'clock position only normal breast tissue is noted. There were no cysts or masses. In the retroareolar area there is a area with a slightly irregular border but completely free of any abnormal echoes. This measured 1.9 x 2.0 x 2.2 cm and may represent a fluid collection. US/US breast RT limited* [id number] Impression: 1. Simple cyst at the 12 o'clock position in the right breast. 2. Only normal breast tissue at the 10 o'clock position. 3. Probable seroma in the retroareolar area. BIRADS: 2 - Benign. FOLLOW UP: 1 Year Follow-up
--- NOTE | 2024-12-12 09:00 | MM_ITS ---
WS: [id number] Right breast diagnostic 3D tomosynthesis digital mammogram, 12/12/2024 Clinical Data: nodule at 9 oclock, hx of breast cancer Comparison: 05/30/2024, 06/21/2023, 05/24/2023, 05/18/2022, 04/10/2021, 01/24/2020, 12/26/2018, 12/19/2017, 12/08/2016, 12/08/2015, 12/02/2014, 11/29/2013, 11/03/2012, 10/05/2011, 09/23/2018, 09/11/2009, 09/10/2008, 08/31/2007. Findings: The breast is slightly distorted from recent surgery. There is postoperative opacity in the posterior right breast unchanged. There are scattered calcifications throughout the right breast. The palpable nodule at 9:00 is marked but there are no masses or abnormal calcifications in this area. The breast parenchymal pattern shows fibroglandular tissue. MM/MM diag RT tomosynthesis [id number] Impression: 1. Postoperative changes of the right breast which remain stable. 2. Right breast ultrasound will be performed. DENSITY: There are scattered areas of fibroglandular density. BIRADS: 2 - Benign. FOLLOW UP: See Report The CAD photo checker and assembler was used.
== END 2024-12-12 08:45 | disposition home or self-care (01) ==
LOC: RAD 08:47
PROVIDERS: PCP Internal Medicine; Visit Provider Nurse Practitioner
DX: Z85.3 Personal history of malignant neoplasm of breast (principal); R92.1 Mammographic calcification found on diagnostic imaging of breast; N63.15 Unspecified lump in the right breast, overlapping quadrants; R92.323 Mammographic fibroglandular density, bilateral breasts; N60.01 Solitary cyst of right breast
CPT/HCPCS: 76642; 77061; G0279

== ENCOUNTER → 2024-12-28 10:34 | Outpatient (BNVA) | payer MEDICARE, BC, SELFPAY | PROVIDERS: PCP Internal Medicine; Visit Provider Specialist | DX: M17.0 Bilateral primary osteoarthritis of knee (principal); Z71.89 Other specified counseling | CPT/HCPCS: 20610; J7326 ==

== ENCOUNTER → 2025-01-10 07:42 | Outpatient (BNVA) | payer MEDICARE, BC, SELFPAY | PROVIDERS: PCP Internal Medicine; Visit Provider Podiatrist Foot & Ankle Surgery | DX: E11.42 Type 2 diabetes mellitus with diabetic polyneuropathy (principal); B35.1 Tinea unguium; L84 Corns and callosities; G62.9 Polyneuropathy, unspecified; D22.9 Melanocytic nevi, unspecified | CPT/HCPCS: 11055; 11721; 99213 ==

== ENCOUNTER 2025-02-15 06:02 | Outpatient (CLI) | payer MEDICARE, BC, SELFPAY ==
--- NOTE | 2025-02-15 06:09 | USCV_ITS ---
Ayana Zhang Age: 79 Gender: F : 1945 Exam Date: 02/15/2025 06:22 Ordering Phys: Elieser Cortes MD Technologist: Srintah Winkler Exam Location: [facility] [place] Indication: systolic murmur BP: 157 / 73 HR: 76 Rhythm: Sinus Technical Quality: Adequate MEASUREMENTS (Male / Female) Normal Values 2D ECHO LV Diastolic Diameter PLAX 3.9 cm 4.2 - 5.9 / 3.9 - 5.3 cm IVS Diastolic Thickness 1.7 cm 0.6 - 1.0 / 0.6 - 0.9 cm IVS Systolic Thickness 1.5 cm LVPW Diastolic Thickness 2.6 cm 0.6 - 1.0 / 0.6 - 0.9 cm LVPW Systolic Thickness 2.5 cm LVOT Diameter 2.0 cm LV Ejection Fraction 2D Teich 63.3 % LV Ejection Fraction MOD 4C 69.2 % LV Ejection Fraction MOD 2C 72.2 % LV Ejection Fraction 2C AL 72.5 % LA Diameter 3.2 cm RA Systolic Volume 4C AL 33.3 ml RA Systolic Volume 4C MOD 34.8 ml LA Sys Volume AL 50.0 cm cubed LA Sys Volume Index AL 23.1 cm cubed/m squared Aorta at Sinotubular Diameter 1.9 cm IVC Diameter 1.9 cm M-MODE LA Ao Ratio MM 2.4 AV Cusp Separation MM 0.7 cm DOPPLER AV Peak Velocity 371.8 cm/s LVOT Peak Velocity 85.0 cm/s AV Area Cont Eq vti 0.8 cm squared AV Area Cont Eq pk 0.7 cm squared MV Peak Velocity 178.0 cm/s MV Area PHT 5.9 cm squared Mitral E to A Ratio 0.7 TR Peak Velocity 452.0 cm/s TR Peak Gradient 81.7 mmHg TR Mean Velocity 355.0 cm/s TR Mean Gradient 54.8 mmHg TR Velocity Time Integral 116.8 cm PV Peak Velocity 101.0 cm/s RV Ejection Time 0.3 s FINDINGS Left Ventricle Normal left ventricular size and systolic function, EF 72%.. Moderate left ventricular hypertrophy. No regional wall motion abnormalities. Grade I/IV diastolic dysfunction (abnormal relaxation filling pattern), normal to mildly elevated filling pressures. Right Ventricle The right ventricle is normal in size and function. Right Atrium The right atrium is normal in size. Left Atrium Mildly increased left atrial size. Mitral Valve Trace to mild mitral valve regurgitation. Aortic Valve Severe low gradient aortic valve stenosis, mean gradient 23 mmHg, LYNETTE 0.83 cm squared. Mild aortic valve regurgitation. The peak velocity was 3.2 m/s with a peak gradient of 41 mmHg Tricuspid Valve Trace tricuspid valve regurgitation. Estimated pulmonary artery peak systolic pressure 58 mmHg Pulmonic Valve Trace pulmonary valve regurgitation. Pericardium No pericardial effusion. Aorta Normal aortic annulus size. IVC Normal inferior vena cava. CONCLUSIONS Severe, normal flow, low gradient aortic valve stenosis, mean gradient 23 mmHg, LYNETTE 0.83 cm squared. The peak velocity was 3.2 m/s with a peak gradient of 41 mmHg. Mild aortic valve regurgitation. Normal left ventricular size and systolic function, EF 72%.. Moderate left ventricular hypertrophy. No regional wall motion abnormalities. Grade I/IV diastolic dysfunction (abnormal relaxation filling pattern), normal to mildly elevated filling pressures. Moderate pulmonary hypertension, estimated pulmonary artery peak systolic pressure 58 mmHg. Trace pulmonary valve regurgitation. There is no pericardial effusion. Compared to the study from 11/08/2016, there is a worsening of the aortic valve stenosis. Dr Deepa Schuster MD [facility] (Electronically Signed) Final Date: 15 February 2025 15:36 S
== END 2025-02-15 06:03 | disposition home or self-care (01) ==
PROVIDERS: PCP Family Medicine; Visit Provider Family Medicine
DX: R01.1 Cardiac murmur, unspecified (principal); R93.1 Abnormal findings on diagnostic imaging of heart and coronary circulation; I51.7 Cardiomegaly; I34.0 Nonrheumatic mitral (valve) insufficiency; I35.0 Nonrheumatic aortic (valve) stenosis; I35.1 Nonrheumatic aortic (valve) insufficiency; I27.20 Pulmonary hypertension, unspecified
CPT/HCPCS: 93306

== ENCOUNTER → 2025-03-14 08:42 | Outpatient (BNVA) | payer MEDICARE, BC, SELFPAY | PROVIDERS: PCP Family Medicine; Visit Provider Podiatrist Foot & Ankle Surgery | DX: E11.42 Type 2 diabetes mellitus with diabetic polyneuropathy (principal); B35.1 Tinea unguium; L84 Corns and callosities; G62.9 Polyneuropathy, unspecified; D22.9 Melanocytic nevi, unspecified; M20.12 Hallux valgus (acquired), left foot | CPT/HCPCS: 11055; 11721; 99213 ==

== ENCOUNTER 2025-04-15 10:19 | Oncology outpatient (recurring) (ONCR) | payer MEDICARE, BC, SELFPAY ==
[2025-04-15 10:31] LABS: Basophils % 0.7 %; Eosinophils # 0.1 10^3/uL (0.0-0.8); Eosinophils % 2.5 %; Hematocrit 33.9 % (36-47); Lymphocytes # 1.4 10^3/uL (0.8-4.8); Lymphocytes % 24.6 %; Mean Corpuscular HGB Conc 32.7 g/dL (30-55); Mean Corpuscular Hemoglobin 33.2 pg (27-33); Mean Corpuscular Volume 101.5 fl (85-98); Mean Platelet Volume 9.8 fL (7.4-10.4); Monocytes # 0.5 10^3/uL (0.2-0.9); Monocytes % 9.2 %; Neutrophils # 3.49 10^3/uL (1.8-7.7); Neutrophils % 62.6 %; Nucleated Red Blood Cells % 0 %; Platelet Count 206 10^3/cmm (157-399); Red Blood Count 3.34 10^6/uL (3.85-5.65); Red Cell Distribution Width 12.8 % (12.1-15.1); White Blood Count 5.57 10^3/uL (3.29-11.43)
[2025-04-15 10:48] LABS: Alanine Aminotransferase 13 U/L (0-33); Albumin Level 3.6 g/dL (3.5-5.2); Alkaline Phosphatase 67 U/L (35-105); Anion Gap 14.7 (5-19); Aspartate Amino Transferase 15 U/L (0-32); Blood Urea Nitrogen 34 mg/dL (8-23); Calcium 9.5 mg/dL (8.5-10.5); Carbon Dioxide 22 mmol/L (22-29); Chloride 104 mmol/L (98-107); Globulin 3.3 g/dL (1.3-4.6); Glucose 153 mg/dL (65-115); Immunoglobulin IGA 290 mg/dL (70-400); Immunoglobulin IGG 710 mg/dL (700-1600); Immunoglobulin IGM 177 mg/dL (40-230); Osmolality Calculated 293 mOsm/kg (285-295); Potassium 4.7 mmol/L (3.5-5.1); Sodium 136 mmol/L (136-145); Total Bilirubin 0.3 mg/dL (0.15-1.2); Total Protein 6.9 g/dL (6.6-8.7)
[2025-04-17 21:45] LABS: Immunofixation Serum Normal pattern.
[2025-04-22 15:40] LABS: KAPPA LIGHT CHAIN, FREE, SERUM 49.3 mg/L (3.3-19.4); KAPPA/LAMBDA LIGHT CHAINS FREE 1.12 (0.26-1.65); LAMBDA LIGHT CHAIN, FREE, SERU 44.1 mg/L (5.7-26.3)
== END 2025-05-06 23:59 | disposition home or self-care (01) ==
PROVIDERS: Nurse Practitioner; Absent Provider Radiology Radiation Oncology; PCP Family Medicine; Visit Provider Internal Medicine
DX: Z53.9 Procedure and treatment not carried out, unspecified reason (principal); C50.911 Malignant neoplasm of unspecified site of right female breast; Z17.0 Estrogen receptor positive status [ER+]; Z79.811 Long term (current) use of aromatase inhibitors; Z92.3 Personal history of irradiation; Z87.891 Personal history of nicotine dependence; Z98.890 Other specified postprocedural states
CPT/HCPCS: 36415; 80053; 82784; 83883; 85025; 86334; 99214

== ENCOUNTER → 2025-05-16 11:55 | Outpatient (BNVA) | payer MEDICARE, BC, SELFPAY | PROVIDERS: PCP Family Medicine; Visit Provider Podiatrist Foot & Ankle Surgery | DX: E11.42 Type 2 diabetes mellitus with diabetic polyneuropathy (principal); B35.1 Tinea unguium; L84 Corns and callosities; G62.9 Polyneuropathy, unspecified; D22.9 Melanocytic nevi, unspecified; M20.12 Hallux valgus (acquired), left foot | CPT/HCPCS: 11721 ==

== ENCOUNTER 2025-06-12 10:45 | Outpatient (CLI) | payer MEDICARE, BC, SELFPAY ==
--- NOTE | 2025-06-12 11:00 | MM_ITS ---
WS: [id number] DIAGNOSTIC BILATERAL DIGITAL BREAST TOMOSYNTHESIS MAMMOGRAPHY WITH CAD HISTORY: breast cancer COMPARISON: 12/12/2024, 05/30/2024, 05/24/2023, 05/18/2022 TECHNIQUE: Bilateral craniocaudad, mediolateral oblique, and mediolateral views are submitted with tomosynthesis and SM. Computer aided detection utilized. Breast composition: There are scattered areas of fibroglandular density. Distortion and postsurgical changes of the RIGHT breast. Postoperative area of high density in the posterior RIGHT breast against the chest wall. This is a site of the prior surgery. There is no spiculated mass. Benign calcifications in each breast. MM/MM diag BI tomosynthesis [id number] IMPRESSION: BI-RADS: 2 - Benign. FOLLOW UP: 1 Year Follow-up
== END 2025-06-12 10:46 | disposition home or self-care (01) ==
LOC: RAD 10:47
PROVIDERS: PCP Family Medicine; Visit Provider Nurse Practitioner
DX: C50.111 Malignant neoplasm of central portion of right female breast (principal); R92.323 Mammographic fibroglandular density, bilateral breasts; R92.1 Mammographic calcification found on diagnostic imaging of breast; Z98.890 Other specified postprocedural states
CPT/HCPCS: 77062; G0279

== ENCOUNTER → 2025-06-28 09:53 | Outpatient (BNVA) | payer MEDICARE, BC, SELFPAY | PROVIDERS: PCP Family Medicine; Visit Provider Specialist | DX: M17.0 Bilateral primary osteoarthritis of knee (principal) | CPT/HCPCS: 20610; J7326 ==

== ENCOUNTER 2025-07-15 11:39 | Oncology outpatient (recurring) (ONCR) | payer MEDICARE, BC, SELFPAY ==
[2025-07-15 13:25] LABS: Alanine Aminotransferase 13 U/L (0-33); Albumin Level 3.8 g/dL (3.5-5.2); Alkaline Phosphatase 68 U/L (35-105); Anion Gap 21.7 (5-19); Aspartate Amino Transferase 16 U/L (0-32); Blood Urea Nitrogen 40 mg/dL (8-23); Calcium 9.5 mg/dL (8.5-10.5); Carbon Dioxide 16 mmol/L (22-29); Chloride 107 mmol/L (98-107); Creatinine Clr Calc Pharmacy 25.0246; Globulin 3.5 g/dL (1.3-4.6); Glucose 184 mg/dL (65-115); Osmolality Calculated 305 mOsm/kg (285-295); Potassium 4.7 mmol/L (3.5-5.1); Sodium 140 mmol/L (136-145); Total Protein 7.3 g/dL (6.6-8.7)
== END 2025-08-06 23:59 | disposition home or self-care (01) ==
PROVIDERS: Nurse Practitioner; PCP Family Medicine; Visit Provider Internal Medicine Medical Oncology
DX: C50.911 Malignant neoplasm of unspecified site of right female breast (principal); E11.65 Type 2 diabetes mellitus with hyperglycemia; M17.0 Bilateral primary osteoarthritis of knee; R01.1 Cardiac murmur, unspecified; N28.9 Disorder of kidney and ureter, unspecified; R03.0 Elevated blood-pressure reading, without diagnosis of hypertension; Z79.899 Other long term (current) drug therapy; Z92.3 Personal history of irradiation; Z87.891 Personal history of nicotine dependence; Z98.890 Other specified postprocedural states
CPT/HCPCS: 36415; 80053; 83615; 85025; 99214

== ENCOUNTER → 2025-07-31 13:03 | Outpatient (BNVA) | payer MEDICARE, BC, SELFPAY | PROVIDERS: PCP Family Medicine; Visit Provider Podiatrist Foot & Ankle Surgery | DX: E11.42 Type 2 diabetes mellitus with diabetic polyneuropathy (principal); B35.1 Tinea unguium; E11.8 Type 2 diabetes mellitus with unspecified complications; G62.9 Polyneuropathy, unspecified; D22.9 Melanocytic nevi, unspecified; L84 Corns and callosities; M20.12 Hallux valgus (acquired), left foot | CPT/HCPCS: 11721 ==

== ENCOUNTER → 2025-10-09 13:11 | Outpatient (BNVA) | payer MEDICARE, BC, SELFPAY | PROVIDERS: PCP Family Medicine; Visit Provider Podiatrist Foot & Ankle Surgery | DX: E11.8 Type 2 diabetes mellitus with unspecified complications (principal); B35.1 Tinea unguium; G62.9 Polyneuropathy, unspecified; D22.9 Melanocytic nevi, unspecified; L84 Corns and callosities; E11.42 Type 2 diabetes mellitus with diabetic polyneuropathy; M20.12 Hallux valgus (acquired), left foot | CPT/HCPCS: 11721 ==

== ENCOUNTER 2025-10-30 08:37 | Oncology outpatient (recurring) (ONCR) | payer MEDICARE, BC, SELFPAY ==
--- NOTE | 2025-10-30 08:45 | NM_ITS ---
WS: [id number] NUCLEAR MEDICINE WHOLE BODY BONE SCAN HISTORY: breast cancer COMPARISON: None available. TECHNIQUE: The patient was injected with 26.2 mCi of Technetium 99m HDP and serial whole-body scintigrams have been performed with anterior and posterior images. Mild before meals and glenohumeral joint arthritis. Moderate bilateral increased uptake at the knees. Mildly increased uptake at the ankles. There are no rib lesions. Mild hypertrophic osteophyte disease in the lumbar spine. No skull lesions. Normal soft tissue and renal uptake. NM/NM bone scan whole body* [id number] IMPRESSION: No evidence for metastatic disease to the bony skeleton.
== END 2025-11-06 23:59 | disposition home or self-care (01) ==
PROVIDERS: PCP Family Medicine; Visit Provider Internal Medicine Medical Oncology
DX: C50.911 Malignant neoplasm of unspecified site of right female breast (principal); E11.65 Type 2 diabetes mellitus with hyperglycemia; M17.0 Bilateral primary osteoarthritis of knee; R01.1 Cardiac murmur, unspecified; N28.9 Disorder of kidney and ureter, unspecified; R03.0 Elevated blood-pressure reading, without diagnosis of hypertension; Z79.899 Other long term (current) drug therapy; Z92.3 Personal history of irradiation; Z87.891 Personal history of nicotine dependence; Z98.890 Other specified postprocedural states
CPT/HCPCS: 78306; A9561